=== PATIENT | male | born 1980 | race Caucasian/White ===

== ENCOUNTER → 2018-02-05 | Day surgery (SDC) | payer OTHER ==
[2018-01-29 12:34] LABS: BASOPHILS # (AUTO) 0.1 (0.0-0.1); BASOPHILS % 0.9 % (0.0-1.0); EOSINOPHILS # (AUTO) 0.1 (0.0-0.4); EOSINOPHILS % 1.1 % (0.0-6.0); HEMATOCRIT 45.6 % (38.2-49.6); LYMPHOCYTES # (AUTO) 2.5 (1.0-3.2); LYMPHOCYTES % 26.7 % (18.0-39.1); MEAN CORPUSCULAR HGB CONC 35.1 g/dL (31-35); MONOCYTES # (AUTO) 0.5 (0.2-0.8); MONOCYTES % 5.1 % (4.4-11.3); NEUTROPHILS # (AUTO) 6.2 (2.1-6.9); NEUTROPHILS % 65.6 % (38.7-80.0); PLATELET COUNT 358 x10e3/uL (140-360); RED BLOOD COUNT 4.85 x10e6/uL (4.3-5.7); RED CELL DISTRIBUTION WIDTH 13.1 % (11.7-14.4)
--- NOTE | 2018-01-29 13:03 | Diagnostic Imaging Report ---
PROCEDURE: Frontal and lateral views of the chest. COMPARISON: None. INDICATIONS: PRE OPERATIVE CHEST X-RAY FOR TOE SURGERY FINDINGS: Lines/tubes: None. Lungs: The lungs are well inflated and clear. There is no evidence of pneumonia or pulmonary edema. Pleura: There is no pleural effusion or pneumothorax. Heart and mediastinum: The heart and the mediastinum are normal. Bones: No acute bony abnormality. IMPRESSION: 1. No acute cardiopulmonary abnormalities. Tyler Frost M.D. Dictated by: Tyler Frost M.D. on 01/29/2018 at 13:06 Electronically approved by: Tyler Frost M.D. on 01/29/2018 at 13:06
[2018-01-29 13:06] LABS: ANION GAP 14.7 mmol/L (8-16); BLOOD UREA NITROGEN 8 mg/dL (7-26); BUN/CREATININE RATIO 10 (6-25); CALCIUM 9.9 mg/dL (8.4-10.2); CARBON DIOXIDE 26 mmol/L (22-29); CHLORIDE 103 mmol/L (98-107); CREATININE, SERUM 0.82 mg/dL (0.72-1.25); EST GLOMERULAR FILTRATION RATE > 60 ML/MIN (60-); GLUCOSE 121 mg/dL (74-118); POTASSIUM 3.7 mmol/L (3.5-5.1); SODIUM 140 mmol/L (136-145)
[~2018-02-05] MED LIST: BETAMETHASONE DISODIUM PHOS 6 MG/ML VIAL ONE; BUPIVACAINE HCL 0.5% INJ 30 ML VIAL INJ ONE; CEFAZOLIN SOD 1 GM VIAL ONE; DEXAMETHASONE SOD PHOS INJ 4 MG/ML VIAL ONE; FENTANYL CITRATE/PF 100MCG/2 ML INJ ONE; KETOROLAC TROMETHAMINE 30 MG/ML VIAL ONE; LIDOCAINE HCL 1% LOCAL INJ 20 ML VIAL ONE; LIDOCAINE HCL 2% LOCAL INJ 5 ML SDV VIAL INJ ONE; LISINOPRIL10 MG PO; MIDAZOLAM HCL 2 MG/2 ML VIAL ONE; MORPHINE SULFATE 2 MG/ML SYR ONE; MUPIROCIN 2% OINT 22 GM TUBE ONE; ONDANSETRON HCL INJ 2 MG/ML VIAL ONE; PROPOFOL IV EMULSION 10 MG/ML 20 ML VIAL ONE; SEVOFLURANE INHAL SOLN 250 ML PEN BTL ONE
--- NOTE | 2018-02-05 09:00 | Operative Report ---
DATE OF PROCEDURE: February 05, 2018 PREOPERATIVE DIAGNOSIS: Fractured right great toe. POSTOPERATIVE DIAGNOSIS: Fractured right great toe. OPERATIVE PROCEDURES: 1. Open reduction internal fixation, right great toe. 2. Intraoperative use of fluoroscopy. 3. Trigger point shot of cortisone. 4. Application of posterior splint. ANESTHESIA: General. HEMOSTASIS: Pneumatic thigh tourniquet at 350 mmHg. PROCEDURE IN DETAIL: Patient was taken into the operating room and placed on the operating room table in supine position. Following induction of general anesthesia by the anesthesiologist, Webril wraps were placed on the patient's right thigh, followed by application of right thigh tourniquet. The right lower extremity was then prepped and draped in the usual aseptic manner, and the following procedures were then performed: Procedure #1: Open reduction internal fixation, right great toe fracture. Attention was directed to the dorsal aspect of the right great toe where a curvilinear incision was performed overlying the proximal interphalangeal joint. Incision was then deepened via sharp and blunt dissection down to the level of the joint capsule. Transverse capsulotomy was then performed exposing the fractured proximal phalanx of the right great toe with some displacement at the joint level. Fracture was then manipulated back into proper anatomical reduction, and utilizing a 0.062 K-wire, proper alignment and fixation was achieved. Procedure #2: Intraoperative use of fluoroscopy was then used to make sure proper alignment and fixation was achieved. All areas were then copiously flushed with sterile antibiotic solution and suctioned. Closure was then obtained utilizing 3-0 Vicryl and 4-0 nylon for capsule, tendon, and skin respectively. Procedure #3: Trigger point shot of cortisone was then given to the first interspace of the right foot. Then, approximately 10 mL of 0.5% plain Marcaine plus 3 mL of 1% Xylocaine plain were used to achieve local anesthesia of above-mentioned surgical area. Sterile dressing was applied upon release of the thigh tourniquet. Blood hyperemia was noted immediately to all digits of the patient's right foot. Procedure #4: A properly placed posterior splint was then applied keeping the foot at 90 degrees with respect to the leg to try to prevent any type of postop complications. Patient was then transferred from the OR to recovery room with vital signs stable and neurovascular status intact. No intraoperative complications were encountered. Blood loss from the surgery was minimal. Patient is to remain nonweightbearing with the aid of crutches, keep his foot elevated, is to apply an ice pack to the ankle joint area. The patient is to follow up within 1 week. Job#: [id number]
--- NOTE | 2018-02-05 09:03 | Diagnostic Imaging Report ---
PROCEDURE:X-RAY RIGHT FOOT, TWO VIEWS COMPARISON:None. INDICATIONS:STATUS POST RIGHT TOE SURGERY FINDINGS: See conclusion. CONCLUSION: AP and lateral post-operative views of the right foot with overlying bandage material show post-surgical changes of surgical fixation of a comminuted fracture of the first proximal phalanx. A surgical pin courses obliquely through the phalanx, terminating along the medial aspect of the phalangeal base. Fracture fragments are in anatomic alignment. There is surrounding soft-tissue swelling consistent with recent surgery. Please refer to performing physician's notes for full details of this procedure. Dictated by: Reynaldo Santoyo M.D. on 02/05/2018 at 9:06 Electronically approved by: Reynaldo Santoyo M.D. on 02/05/2018 at 9:06
== END | disposition home or self-care (01) ==
LOC: OR 05:31
PROVIDERS: ATTEND Podiatrist Foot Surgery
DX: S92.411A Displaced fracture of proximal phalanx of right great toe, initial encounter for closed fracture (principal); I10 Essential (primary) hypertension; K76.0 Fatty (change of) liver, not elsewhere classified; X58.XXXA Exposure to other specified factors, initial encounter; Z01.810 Encounter for preprocedural cardiovascular examination; Z01.812 Encounter for preprocedural laboratory examination; Z01.818 Encounter for other preprocedural examination
CPT/HCPCS: 28505; 36415; 71046; 73620; 80048; 85025; 93005; J0690; J0720; J1100; J1885; J2001 ×2; J2250; J2270; J2405